=== PATIENT | female | born 1970 | race Caucasian/White ===

== ENCOUNTER 2020-02-12 12:26 | Emergency (ER) | payer OTHER ==
--- NOTE | 2020-02-12 12:35 | ERPHSYRPT ---
- History of Present Illness Time Seen by Provider: 02/12/20 12:30 Historian: patient Exam Limitations: no limitations Physician History: This is a 49-year-old female who takes diltiazem for history of congestive heart failure. She presents with left anterior chest pain that is sharp and nonradiating. Is localized. Patient states that she was seen at [facility] within the last week and was being worked up for myocardial infarction. However, she stated she did not feel comfortable without hospital so she left the hospital. She did not go to another hospital. She waited until the next day to go see her primary care physician. The primary care physician set the patient up for outpatient cardiology evaluation. Patient states that she has htn, dm and some COPD as well. Patient states her mild shortness of breath is no different than usual. Patient did not take any nitroglycerin or aspirin prior to arrival. Patient is in fact allergic to aspirin. Timing/Duration: yesterday Activities at Onset: none Quality: sharpness, stabbing Location: other (Left anterior chest wall) Chest Pain Radiation: no radiation Severity of Pain-Max: mild Severity of Pain-Current: mild Associated Symptoms: denies symptoms Prior Chest Pain/Cardiac Workup: recently seen/treated, recent hospitalization Nitro Today/Relief: no nitro taken today Aspirin Treatment Today: no aspirin today Allergies/Adverse Reactions: aspirin Allergy (Mild, Verified 05/21/16 20:45) Home Medications: Lisinopril 40 mg PO DAILY 01/04/13 [History] Atorvastatin Calcium [Lipitor] 0 05/21/16 [History] Diltiazem HCl [Cardizem] 0 mg 05/21/16 [History] Hydrochlorothiazide 25 mg PO DAILY 05/21/16 [History] Metformin HCl [Glucophage] 0 mg 05/21/16 [History] Hx Tetanus, Diphtheria Vaccination/Date Given: No Hx Influenza Vaccination/Date Given: No Hx Pneumococcal Vaccination/Date Given: No - Review of Systems Constitutional: No Symptoms Eyes: No Symptoms Ears, Nose, & Throat: No Symptoms Respiratory: No Symptoms Cardiac: Chest Pain (Left anterior chest wall) Abdominal/Gastrointestinal: No Symptoms Genitourinary Symptoms: No Symptoms Musculoskeletal: No Symptoms Skin: No Symptoms Neurological: No Symptoms Psychological: No Symptoms Endocrine: No Symptoms Hematologic/Lymphatic: No Symptoms Immunological/Allergic: No Symptoms All Other Systems: Reviewed and Negative - Past Medical History Pertinent Past Medical History: Yes Neurological History: No Pertinent History ENT History: No Pertinent History Cardiac History: High Cholesterol, Hypertension Respiratory History: COPD, Pneumonia Endocrine Medical History: Diabetes Type II Musculoskeletal History: No Pertinent History History: No Pertinent History Psycho-Social History: No Pertinent History Female Reproductive Disorders: No Pertinent History Other Medical History: CHRONIC BACK PAIN - Past Surgical History Past Surgical History: Yes Cardiac: No Pertinent History Respiratory: Tracheostomy Gastrointestinal: Cholecystectomy Musculoskeletal: Other (Back surgery) Female Surgical History: Section, Hysterectomy (partial hysterectomy), Tubal Ligation Other Surgical History: RT OVARY REMOVAL, BLOOD CLOT RT ARM REMOVED - Social History Smoking Status: Current every day smoker How long have you smoked: 32 YEARS Exposure to second hand smoke: No Drug Use: none Patient Lives Alone: No - Nursing Vital Signs Nursing Vital Signs: Initial Vital Signs Temperature 98.1 F 02/12/20 12:27 Pulse Rate 83 02/12/20 12:27 Respiratory Rate 18 02/12/20 12:27 Blood Pressure 149/90 02/12/20 12:27 O2 Sat by Pulse Oximetry 94 L 02/12/20 12:27 Pain Scale Pain Intensity 5 - Physical Exam General Appearance: no apparent distress, alert, anxiety Eye Exam: PERRL/EOMI, eyes nml inspection Ears, Nose, Throat Exam: normal ENT inspection, moist mucous membranes Neck Exam: normal inspection, non-tender, supple, full range of motion Respiratory Exam: normal breath sounds, chest tenderness (Left anterior chest wall), lungs clear, airway intact, No respiratory distress Cardiovascular Exam: regular rate/rhythm, normal heart sounds, normal peripheral pulses Gastrointestinal/Abdomen Exam: soft, normal bowel sounds, No tenderness Pelvic Exam: not done Rectal Exam: not done Back Exam: normal inspection, normal range of motion, No CVA tenderness, No vertebral tenderness Extremity Exam: normal inspection, normal range of motion, pelvis stable Neurologic Exam: alert, oriented x 3, cooperative, manager strategy & account II-XII nml as tested Skin Exam: normal color, warm, dry Lymphatic Exam: No adenopathy SpO2 Interpretation: normal O2 Delivery: Room Air - Course Nursing assessment & vital signs reviewed: Yes EKG Interpreted by Me: RATE (78), Sinus Rhythm, NORMAL AXIS, NORMAL INTERVALS, NORMAL QRS, Other (No comparison EKG available) Ordered Tests: Active Orders 24 hr Category Date Time Status Tie Mill Operator STAT Care 02/12/20 12:36 Active EKG-ER Only STAT Care 02/12/20 12:36 Active IV Insertion STAT Care 02/12/20 12:36 Active Pulse Oximetry (ED) STAT Care 02/12/20 12:36 Active CHEST 1 VIEW (PORTABLE) Stat Exams 02/12/20 12:36 Completed CHEST WITH CONTRAST [CT] Stat Exams 02/12/20 13:17 Completed CBC W DIFF Stat Lab 02/12/20 12:52 Completed CMP Stat Lab 02/12/20 12:52 Completed D-DIMER QUANTITATIVE Stat Lab 02/12/20 12:52 Completed NT PRO BNP Stat Lab 02/12/20 12:52 Completed PROTIME WITH INR Stat Lab 02/12/20 12:52 Completed TROPONIN Q3H Lab 02/12/20 12:52 Completed TROPONIN Q3H Lab 02/12/20 15:45 Ordered TROPONIN Q3H Lab 02/12/20 18:45 Ordered TROPONIN Q3H Lab 02/12/20 21:45 Ordered TROPONIN Q3H Lab 02/13/20 00:45 Ordered Medication Summary Discontinued Medications Generic Name Dose Route Start Last Admin Trade Name Freq PRN Reason Stop Dose Admin Sodium Chloride 500 mls @ 500 mls/hr 02/12/20 13:18 02/12/20 13:42 Sodium Chloride 0.9% 500 Ml IV 02/12/20 14:17 500 mls/hr .Q1H ONE Administration Sodium Chloride Confirm 02/12/20 13:17 Sodium Chloride 0.9% 1000 Ml Administered 02/12/20 13:18 Dose 1,000 mls @ ud .ROUTE .STK-MED ONE Sodium Chloride Confirm 02/12/20 13:41 Sodium Chloride 0.9% 500 Ml Administered 02/12/20 13:42 Dose 500 mls @ ud IV .STK-MED ONE Lab/Rad Data: Laboratory Result Diagrams 02/12/20 12:52 02/12/20 12:52 Laboratory Results 02/12/20 02/12/20 02/12/20 Range/Units 12:52 12:52 12:52 WBC (4.0-10.5) K/mm3 RBC (4.1-5.4) M/mm3 Hgb (12.0-16.0) gm/dl Hct (35-47) % MCV (78-100) fl MCH (26-32) pg MCHC (32-36) g/dl RDW (11.5-14.0) % Plt Count (150-450) K/mm3 MPV (7.5-11.0) fl Gran % (36.0-66.0) % Eos # (Auto) (0-0.5) Absolute Lymphs (auto) (1.0-4.6) Absolute Monos (auto) (0.0-1.3) Lymphocytes % (24.0-44.0) % Monocytes % (0.0-12.0) % Eosinophils % (0.00-5.0) % Basophils % (0.0-0.4) % Absolute Granulocytes (1.4-6.9) Basophils # (0-0.4) PT 10.9 (9.95-12.35) SECONDS INR 0.97 (0.8-3.0) D-Dimer 994 H* (215-500) ng/mL Sodium 137 (137-145) mmol/L Potassium 3.6 (3.5-5.1) mmol/L Chloride 98 (98-107) mmol/L Carbon Dioxide 29 (22-30) mmol/L Anion Gap 13.6 (5-15) MEQ/L BUN 24 H (7-17) mg/dL Creatinine 0.83 (0.52-1.04) mg/dL Estimated GFR > 60.0 ML/MIN Glucose 190 H (74-106) mg/dL Calcium 9.7 (8.4-10.2) mg/dL Total Bilirubin 0.50 (0.2-1.3) mg/dL AST 19 (14-36) U/L ALT 17 (0-35) U/L Alkaline Phosphatase 96 (38-126) U/L Troponin I < 0.012 (0.000-0.034) ng/mL NT-Pro-B Natriuret Pep 26.2 (0-450) pg/mL Serum Total Protein 7.4 (6.3-8.2) g/dL Albumin 4.1 (3.5-5.0) g/dL 02/12/20 Range/Units 12:52 WBC 12.4 H (4.0-10.5) K/mm3 RBC 5.43 H (4.1-5.4) M/mm3 Hgb 15.6 (12.0-16.0) gm/dl Hct 46.1 (35-47) % MCV 84.9 (78-100) fl MCH 28.7 (26-32) pg MCHC 33.8 (32-36) g/dl RDW 13.9 (11.5-14.0) % Plt Count 275 (150-450) K/mm3 MPV 11.8 H (7.5-11.0) fl Gran % 79.2 H (36.0-66.0) % Eos # (Auto) 0.18 (0-0.5) Absolute Lymphs (auto) 1.70 (1.0-4.6) Absolute Monos (auto) 0.66 (0.0-1.3) Lymphocytes % 13.7 L (24.0-44.0) % Monocytes % 5.3 (0.0-12.0) % Eosinophils % 1.5 (0.00-5.0) % Basophils % 0.3 (0.0-0.4) % Absolute Granulocytes 9.81 H (1.4-6.9) Basophils # 0.04 (0-0.4) PT (9.95-12.35) SECONDS INR (0.8-3.0) D-Dimer (215-500) ng/mL Sodium (137-145) mmol/L Potassium (3.5-5.1) mmol/L Chloride (98-107) mmol/L Carbon Dioxide (22-30) mmol/L Anion Gap (5-15) MEQ/L BUN (7-17) mg/dL Creatinine (0.52-1.04) mg/dL Estimated GFR ML/MIN Glucose (74-106) mg/dL Calcium (8.4-10.2) mg/dL Total Bilirubin (0.2-1.3) mg/dL AST (14-36) U/L ALT (0-35) U/L Alkaline Phosphatase (38-126) U/L Troponin I (0.000-0.034) ng/mL NT-Pro-B Natriuret Pep (0-450) pg/mL Serum Total Protein (6.3-8.2) g/dL Albumin (3.5-5.0) g/dL - Progress Progress: improved, re-examined Air Movement: good Progress Note: 02/12/20 13:10 Chest x-ray reveals no acute process 02/12/20 14:24 CAT scan of the chest with intravenous contrast reveals no acute process. There is no evidence of any pulmonary emboli. 02/12/20 14:25 Patient was told to follow-up with her primary care doctor regarding mild pulmonary adenopathy. Blood Culture(s) Obtained: No Antibiotics given: No Counseled pt/family regarding: lab results, diagnosis, need for follow-up, rad results - Departure Departure Disposition: Home Clinical Impression: Chest pain, non-cardiac Condition: Stable Critical Care Time: No Referrals: TONI RENE [Primary Care Provider] - Additional Instructions: Follow-up with your primary care physician regarding some mild pulmonary adenopathy it is present. Continue your medication as prescribed. Keep your cardiology appointment that is scheduled for you. Return to the emergency department if your symptoms worsen or recur.
[2020-02-12 12:54] LABS: Absolute Neutrophil Ct (ANC) 9.81 (1.4-6.9); BASOPHIL % 0.3 % (0.0-0.4); Basophil (Absolute #) 0.04 (0-0.4); Eosinophil % 1.5 % (0.00-5.0); Eosinophil (Absolute #) 0.18 (0-0.5); Hematocrit 46.1 % (35-47); Hemoglobin 15.6 gm/dl (12.0-16.0); Lymphocytes % 13.7 % (24.0-44.0); Mean Cell Volume 84.9 fl (78-100); Mean Corpuscular Hemoglobin 28.7 pg (26-32); Mean Corpuscular Hgb Concent. 33.8 g/dl (32-36); Mean Platelet Volume 11.8 fl (7.5-11.0); Monocyte (Absolute #) 0.66 (0.0-1.3); Monocytes % 5.3 % (0.0-12.0); Neutrophil % 79.2 % (36.0-66.0); Platelet Count 275 K/mm3 (150-450); Red Blood Count 5.43 M/mm3 (4.1-5.4); Red Cell Distribution Width 13.9 % (11.5-14.0); White Blood Count 12.4 K/mm3 (4.0-10.5)
--- NOTE | 2020-02-12 13:01 | XRAY ---
Indication: Left-sided chest pain. Comparison: November 15, 2017. Portable chest unchanged again demonstrating left midlung fibrosis/scarring. Remaining heart and lungs unremarkable. Bony thorax intact. No new/acute findings.
[2020-02-12 13:08] LABS: INR 0.97 (0.8-3.0); PROTIME 10.9 SECONDS (9.95-12.35)
[2020-02-12 13:14] LABS: ALBUMIN 4.1 g/dL (3.5-5.0); ALKALINE PHOSPHATASE 96 U/L (38-126); ANION GAP 13.6 MEQ/L (5-15); BLOOD UREA NITROGEN 24 mg/dL (7-17); CHLORIDE 98 mmol/L (98-107); Calcium 9.7 mg/dL (8.4-10.2); Carbon Dioxide 29 mmol/L (22-30); Creatinine 1 0.83 mg/dL (0.52-1.04); Glucose 190 mg/dL (74-106); NT PRO BNP 26.2 pg/mL (0-450); Potassium 3.6 mmol/L (3.5-5.1); SGOT/AST 19 U/L (14-36); SGPT/ALT 17 U/L (0-35); SODIUM 137 mmol/L (137-145); Total Protein 7.4 g/dL (6.3-8.2)
[2020-02-12] MEDS ORDERED: Sodium Chloride 0.9% 1000 ML 1,000 ML ONE (13:17)
[2020-02-12] MEDS ORDERED: Sodium Chloride 0.9% 500 ML 500 ML IV ONE ×2 (13:18→13:41)
[2020-02-12 13:57] VITALS: BP 119/55; PULSE 70; O2SAT 94
--- NOTE | 2020-02-12 14:17 | XRAY ---
Indication: Chest pain. Elevated d-dimer. Multiple contiguous axial images obtained through the chest using 100 cc Isovue-370 contrast and PE protocol. Comparison: None There is good opacification of the pulmonary arteries to include the lobar and segmental branches. No filling defect/pulmonary embolus. Heart is not enlarged. Aorta is normal in course and caliber. Tiny subcarinal and right hilar calcified nodes. No pathologic mediastinal/hilar lymphadenopathy. Lungs demonstrates mild pulmonary emphysema and scattered fibrosis/scarring bilaterally. Indeterminant 9 mm noncalcified nodule in the superior segment of the right lower lobe (image [id number]) with irregular margins. No infiltrate or effusion. Bony thorax intact. Limited upper abdomen demonstrates calcified splenic granuloma and mild fatty liver. Also 2.8 x 4.0 cm right adrenal gland and 1.0 x 2.4 cm left adrenal gland adenomas. Impression: 1. Negative pulmonary embolus. 2. Mild pulmonary emphysema and scattered fibrosis/scarring. 3. Indeterminant subcentimeter right lower lobe irregular noncalcified pulmonary nodule. Too small for PET/CT. Comparison studies would be of benefit if performed elsewhere. If not, consider follow-up per Fleischner guidelines. 4. Bilateral adrenal gland adenomas. 5. Incidental fatty liver and evidence for old granulomatous disease.
== END 2020-02-12 14:42 | disposition home or self-care (01) ==
LOC: ED 12:26
DX: R07.89 Other chest pain (principal); R59.9 Enlarged lymph nodes, unspecified; I50.9 Heart failure, unspecified; I10 Essential (primary) hypertension; E11.9 Type 2 diabetes mellitus without complications; Z79.4 Long term (current) use of insulin; E78.00 Pure hypercholesterolemia, unspecified; Z72.0 Tobacco use
CPT/HCPCS: 36000; 36415; 71045; 71260; 80053; 83880; 84484; 85025; 85379; 85610; 93005; 93041; 94760; 96360; 99284

== ENCOUNTER 2024-07-21 18:32 | Emergency (ER) | payer OTHER ==
[2024-07-21 19:00] VITALS: TEMP 97.8; O2SAT 95
[2024-07-21] MEDS ORDERED: BACTRIM DS TABLET PO ONE (19:25)
[2024-07-21] MEDS ORDERED: solu-MEDROL ONE (19:25)
[2024-07-21] MEDS ORDERED: Sterile H2O 10 ml IJ ONE (19:25)
[2024-07-21] MEDS ORDERED: ATARAX 25 MG ONE (19:25)
[2024-07-21] MEDS: ATARAX 25 MG PO ONE (19:28)
[2024-07-21] MEDS: BACTRIM DS TABLET PO ONE (19:29)
[2024-07-21] MEDS: solu-MEDROL 125 MG, Sterile H2O 10 ml 2 ML IM ONE (19:29)
--- NOTE | 2024-07-21 19:30 | ERPHSYRPT ---
- History of Present Illness Time Seen by Provider: 07/21/24 19:00 Source: patient Exam Limitations: no limitations Patient Subjective Stated Complaint: itchy rash on the back of her head Triage Nursing Assessment: Pt brought self to the ER, hypertensive, rates pain as 5/10, back of head red and draining, pulses normal, on 5L NC, doesn't appear to be in any distress Physician History: This is a 53-year-old white female patient who in the last few weeks has been treated with antibiotics and steroids for a pneumonia. She has had 2 rounds of antibiotics. She has completed them. However, approximately 1 week ago, the patient noticed some rash on the back of her neck and occipital region of her scalp. It has been very itchy. She is having trouble not scratching the site. She has never had anything like this before. She is currently not on any antibiotics. She is just on her usual medications. Other than the antibiotics 2 to 3 weeks ago she has not been on any new medications. Timing/Duration: week(s) (1) Quality: burning, itchy Severity: mild (To moderate) Location: scalp (Occipital region) Possible Causes: no cause identified Associated Symptoms: change in skin texture, rash Allergies/Adverse Reactions: aspirin Adverse Reaction (Mild, Verified 07/21/24 18:45) Vomiting Home Medications: Lisinopril 40 mg PO DAILY 01/04/13 [History] Atorvastatin Calcium [Lipitor] 80 mg PO DAILY 05/21/16 [History] Metformin HCl [Glucophage] 1,000 mg PO BID 05/21/16 [History] hydroCHLOROthiazide [Hydrochlorothiazide] 25 mg PO DAILY 05/21/16 [History] Albuterol Sulfate 1 inh PO DAILY 07/21/24 [History] Budesonide/Formoterol Fumarate [Symbicort 160-4.5 Mcg Inhaler] 2 puffs IH BID 07/21/24 [History] Bupropion HCl 150 mg Sr [Wellbutrin SR 150 MG] 150 mg PO BID 07/21/24 [History] Escitalopram Oxalate [Lexapro] 10 mg PO DAILY 07/21/24 [History] Gabapentin [Neurontin ] 300 mg PO TID 07/21/24 [History] Isosorbide Mononitrate 60 mg [Imdur 60MG] 60 mg PO DAILY 07/21/24 [History] Loratadine 10 mg [Claritin 10 mg] 10 mg PO DAILY 07/21/24 [History] Magnesium Oxide 400 mg PO DAILY 07/21/24 [History] Pantoprazole 20 mg [Protonix 20MG Tablet] 20 mg PO DAILY 07/21/24 [History ] Potassium Chloride 10 meq PO DAILY 07/21/24 [History] Tiotropium [place] [Spiriva Handihaler] 1 cap PO DAILY 07/21/24 [History] Trazodone HCl 50 mg [Desyrel 50 mg] 100 mg PO HS 07/21/24 [History] dilTIAZem HCL [Diltiazem 24Hr ER (Cd)] 360 mg PO DAILY 07/21/24 [History] Hx Tetanus, Diphtheria Vaccination/Date Given: No Hx Influenza Vaccination/Date Given: No Hx Pneumococcal Vaccination/Date Given: No Travel Risk - International Travel Have you traveled outside of the country in past 3 weeks: No - Emerging Infectious Disease Are you exhibiting symptoms associated with any current EIDs: No - Review of Systems Constitutional: No Symptoms Eyes: No Symptoms Ears, Nose, & Throat: No Symptoms Respiratory: No Symptoms Cardiac: No Symptoms Abdominal/Gastrointestinal: No Symptoms Genitourinary Symptoms: No Symptoms Musculoskeletal: No Symptoms Skin: Cellulitis, Rash Neurological: No Symptoms Psychological: No Symptoms Endocrine: No Symptoms Hematologic/Lymphatic: No Symptoms Immunological/Allergic: No Symptoms All Other Systems: Reviewed and Negative - Past Medical History Pertinent Past Medical History: Yes Neurological History: No Pertinent History ENT History: No Pertinent History Cardiac History: High Cholesterol, Hypertension Respiratory History: COPD, Pneumonia Endocrine Medical History: Diabetes Type II Musculoskeletal History: No Pertinent History History: No Pertinent History Psycho-Social History: No Pertinent History Female Reproductive Disorders: No Pertinent History Other Medical History: CHRONIC BACK PAIN - Past Surgical History Past Surgical History: Yes Cardiac: No Pertinent History Respiratory: Tracheostomy Gastrointestinal: Cholecystectomy Musculoskeletal: Other Female Surgical History: Section, Hysterectomy, Tubal Ligation Other Surgical History: RT OVARY REMOVAL, BLOOD CLOT RT ARM REMOVED - Female History Hx Now: No - Social History Smoking Status: Current every day smoker How long have you smoked: 32 YEARS Exposure to second hand smoke: Yes Drug Use: none Patient Lives Alone: No - Social Determinants of Health Will the patient participate in the screening: Yes Do you worry about a steady place to live?: No Do you have any problems with any of the following?: No known problems In the past 12 months,have you had to go without utilities?: No Transportation Issues: No Has anyone in your support network made you feel unsafe?: No Have you or anyone in your house had to go without enough: No - Nursing Vital Signs Nursing Vital Signs: Initial Vital Signs Temperature 97.8 F 07/21/24 18:37 Pulse Rate 79 07/21/24 18:37 Blood Pressure 162/79 07/21/24 18:37 O2 Sat by Pulse Oximetry 95 07/21/24 18:37 Pain Scale Pain Intensity 5 - Physical Exam General Appearance: no apparent distress, alert, anxiety Eye Exam: PERRL/EOMI, eyes nml inspection Ears, Nose, Throat Exam: normal ENT inspection, moist mucous membranes Neck Exam: other (Skin with mildew odor cellulitis and damp with crust formation onto the occipital region of the scalp) Respiratory Exam: airway intact, No chest tenderness, No respiratory distress Gastrointestinal/Abdomen Exam: No tenderness Pelvic Exam: not done Rectal Exam: not done Extremity Exam: normal inspection, normal range of motion, pelvis stable Neurologic Exam: alert, oriented x 3, cooperative, data modeling specialist II-XII nml as tested, nml cerebellar function, nml station & gait, sensation nml Skin Exam: normal color, warm, dry Lymphatic Exam: No adenopathy SpO2 Interpretation: normal SpO2: 95 O2 Delivery: Room Air Ordered Tests: Active Orders 24 hr Category Date Time Status CULTURE,WOUND Stat Lab 07/21/24 18:59 Ordered Medication Summary Discontinued Medications Generic Name Dose Route Start Last Admin Trade Name Glendy PRN Reason Stop Dose Admin Methylprednisolone Sodium 0 mg 07/21/24 19:21 Succinate 125 mg/ Sterile IM 07/21/24 19:22 Water 2 ml STAT ONE Hydroxyzine HCl 50 mg 07/21/24 19:22 Hydroxyzine Hcl 25 Mg Tablet PO 07/21/24 19:23 STAT ONE Trimethoprim/Sulfamethoxazole 1 tab 07/21/24 19:21 Smz/Tmp Ds Tablet 1 Tablet PO 07/21/24 19:22 STAT ONE - Progress Progress: unchanged Progress Note: 07/21/24 19:36 My medical decision making of the assignment of low complexity to this patient's medical issue today is based on review of the patient's past medical history, review of the patient's medication list, review of patient drug allergy list, history present illness and physical findings on examination. The workup in this patient does not require any radiographic studies but we did obtain a culture of the fluid from the rash/skin site. Differential diagnosis includes but is not limited to cellulitis, atopic dermatitis, bacterial infection, viral infection, fungal infection Counseled pt/family regarding: diagnosis, need for follow-up Medical Desision Making - Diagnostic Testing Diagnostic test were ordered, analyzed, and reviewed by me: Yes - Risk of complications The pt has a mod risk of morbidity or mortality based on: Need for prescription drug management - Departure Departure Disposition: Home Clinical Impression: Cellulitis of neck, Cellulitis of scalp Condition: Stable Critical Care Time: No Referrals: ABRAHAN STEELE DO [Primary Care Provider] - Follow up/PCP as directed Additional Instructions: Cut and shave the hair that is covering the rash/infectious site. Wash this area 3 times a day with antibacterial soap. Blot dry use a inspector hairspring. May cover the site after washing and drying twice a day with either zinc oxide ointment or [employer] Butt paste. You can purchase this [id number]. Take your medications as prescribed. Return to the emergency department tomorrow, 07/21/2024 at noon for reassessment. Also make sure you call your primary care provider on 07/24/2024 to be seen in the next 1 to 2 days. Prescriptions: Hydroxyzine HCl 25 mg [Atarax 25 mg] 25 mg PO Q6H PRN #12 tablet PRN Reason: Itching Prednisone 10 mg [Deltasone 10 mg] 10 mg PO TID #12 tablet Fluconazole 100 mg [Diflucan 100 MG] 100 mg PO DAILY #2 tablet
[2024-07-21] MEDS: Diflucan 100 MG PO ONE (19:45)
[2024-07-21 20:07] VITALS: BP 163/80; PULSE 78; RESP 18
== END 2024-07-21 20:02 | disposition home or self-care (01) ==
LOC: ED 18:32
DX: L03.811 Cellulitis of head [any part, except face] (principal); L03.221 Cellulitis of neck; E78.5 Hyperlipidemia, unspecified; I10 Essential (primary) hypertension; E11.9 Type 2 diabetes mellitus without complications; Z79.52 Long term (current) use of systemic steroids; Z79.84 Long term (current) use of oral hypoglycemic drugs; Z79.899 Other long term (current) drug therapy; Z72.0 Tobacco use
CPT/HCPCS: 87070; 87077; 87186; 96372; 99283; J2919; A9270-GY

== ENCOUNTER 2024-09-11 07:24 | Emergency (ER) | payer MEDICAID, OTHER ==
[2024-09-11] MEDS ORDERED: DUONEB 0.5-3 MG/3 ml Neb IH ONE ×2 (07:31→07:35)
[2024-09-11] MEDS: DUONEB 0.5-3 MG/3 ml Neb IH ONE (07:33)
[2024-09-11 07:36] LABS: Hematocrit 36.5 % (34.1-44.9); Hemoglobin 12.2 g/dL (11.2-15.7); Mean Cell Volume 83.3 fL (79.4-94.8); Mean Corpuscular Hemoglobin 27.9 pg (25.6-32.2); Mean Corpuscular Hgb Concent. 33.4 g/dL (32.2-35.5); Mean Platelet Volume 10.4 fL (9.4-12.3); Platelet Count 498 x10^3/uL (182-369); Red Blood Count 4.38 x10^6/uL (3.93-5.22); Red Cell Distribution Width 15.1 % (11.7-14.4)
[2024-09-11] MEDS: Lasix 40 MG/4 ML IV ONE (07:36)
[2024-09-11] MEDS ORDERED: Lasix 40 MG/4 ML ONE (07:36)
[2024-09-11] MEDS: Versed 2 MG/2 ML Injection IV PRN (07:41)
[2024-09-11] MEDS ORDERED: NOREPINEPHRINE 8 MG/250 ML-D5W 8 MG/250 ML PLAST..BAG IV ONE (07:42)
[2024-09-11] MEDS: Quelicin Fliptop 200 MG/10 ML IV ONE (07:42)
[2024-09-11] MEDS ORDERED: VERSED 5 MG/5 ML ONE (07:45)
[2024-09-11] MEDS ORDERED: Quelicin Fliptop 200 MG/10 ML ONE (07:45)
[2024-09-11 07:49] LABS: ALBUMIN 3.4 g/dL (3.5-5.0); ANION GAP 24.2 MEQ/L (5-15); BILIRUBIN,TOTAL 1.1 mg/dL (0.2-1.3); Calcium 8.3 mg/dL (8.4-10.2); MAGNESIUM 1.4 mg/dL (1.6-2.3); Potassium 4.4 mmol/L (3.5-5.1); Total Protein 6.5 g/dL (6.3-8.2)
[2024-09-11 07:54] LABS: ANISOCYTOSIS 1+; BAND 13 % (0.0-2.0); Lymphocytes 2 % (19.3-51.7); Monocyte 4 % (4.7-12.5); Neutrophils 81 % (34.0-71.1); Platelet Estimate INCREASED (NORMAL); Total Cells Counted 100
[2024-09-11 07:55] LABS: Toxic Granulation 1+
[2024-09-11] MEDS: Versed 50 MG/ 10 Ml MDV*** 50 MG in Sodium Chloride 0.9% 250 ML 240 ML IV PRN (08:00)
[2024-09-11] MEDS: PIPERACILLIN/TAZOBACTAM 3.375 GM in Sodium Chloride 100ML MINI-BAG PLUS 100 ML IV ONE (08:04)
[2024-09-11] MEDS ORDERED: VANCOMYCIN 1 GRAM/200 ML BAG 1 GM/200 ML PIGGYBACK IV ONE (08:05)
[2024-09-11] MEDS: NOREPINEPHRINE 8 MG/250 ML-D5W 8 MG/250 ML PLAST..BAG IV PRN (08:12)
[2024-09-11] MEDS: Sodium Chloride 0.9% 1000 ML 1,000 ML IV SCH (08:15)
[2024-09-11] MEDS ORDERED: SODIUM BICARBONATE 50 MEQ/50 ML ABBOJECT IV ONE (08:26)
[2024-09-11 08:32] LABS: A-aADO2 554; ABG HEMOGLOBIN 12.7; ABG POTASSIUM 4.8 (3.5-5.1); ARTERIAL BLD GAS O2 SATURATION 88.6 % (95-100); ARTERIAL BLOOD GAS BASE EXCESS -8.2 (-2.0-2.0); ARTERIAL BLOOD GAS FIO2 100 %; ARTERIAL BLOOD GAS PO2 65 mmHg (75-100); ARTERIAL BLOOD GAS pH 7.09 (7.35-7.45); CARBOXYHEMOGLOBIN 2.7 % THgb (0.0-6.9); HCO3- 22.8 (22-28); HGB O2 SAT 85.6 g/dF (94-100); Methhemoglobin 0.8 % (1.4-1.5); paO2 pAO1 0.11
[2024-09-11 08:33] LABS: ABG SITE LEFT RADIAL; ARTERIAL BLOOD GAS PCO2 75 mmHg (35-45)
--- NOTE | 2024-09-11 08:35 | XRAY ---
Indication: Endotracheal tube and OG tube placement. Respiratory distress. Comparison: January 11, 2024 Portable chest demonstrates new endotracheal tube tip 4 cm above flower and new NG tube traversing chest with tip not included but presumed in stomach. Lungs demonstrates large right mid to lower lung infiltrate/atelectasis/effusion. Remaining heart and left lung unremarkable. Bony thorax intact.
[2024-09-11] MEDS: SODIUM BICARBONATE 50 MEQ/50 ML ABBOJECT IV ONE (08:38)
[2024-09-11] MEDS: VANCOMYCIN 1 GRAM/200 ML BAG 1 GM/200 ML PIGGYBACK IV SCH (08:41)
[2024-09-11 08:53] VITALS: TEMP 97.5
[2024-09-11 09:03] LABS: Appearance Cloudy (Clear); Bacteria Rare /HPF (None Seen); Bilirubin Moderate (Negative); Blood Negative (Negative); Epithelial Cells Many /HPF (None Seen); Glucose, Urine Negative (Negative); Ketones Negative (Negative); Leukocyte Esterase Small (Negative); Nitrite Positive (Negative); Protein,Urine Dip 30 (Negative); WBC 0-2 /HPF (0-5)
[2024-09-11 09:12] LABS: Granular Casts 0-2 /LPF (None Seen)
--- NOTE | 2024-09-11 09:16 | ERPHSYRPT ---
- History of Present Illness Time Seen by Provider: 09/11/24 07:34 Source: EMS Exam Limitations: clinical condition Patient Subjective Stated Complaint: patient complaining of sob , paramedics were called to the scene and then she was placedon cpap and given one dose of so lumedrol and brought to the ED Timing/Duration: today Severity: severe Associated Symptoms: shortness of breath, cough Allergies/Adverse Reactions: aspirin Adverse Reaction (Mild, Verified 09/11/24 09:44) Vomiting Can't take too much of Aspirin, but family states she does take ASA 81mg daily Home Medications: Atorvastatin Calcium [Lipitor] 80 mg PO DAILY 05/21/16 [History] Metformin HCl [Glucophage] 1,000 mg PO BID 05/21/16 [History] hydroCHLOROthiazide [Hydrochlorothiazide] 25 mg PO DAILY 05/21/16 [History] Albuterol Sulfate 1 inh PO DAILY 07/21/24 [History] Budesonide/Formoterol Fumarate [Symbicort 160-4.5 Mcg Inhaler] 2 puffs IH BID 07/21/24 [History] Bupropion HCl 150 mg Sr [Wellbutrin SR 150 MG] 150 mg PO BID 07/21/24 [History] Gabapentin [Neurontin ] 300 mg PO TID 07/21/24 [History] Isosorbide Mononitrate 60 mg [Imdur 60MG] 60 mg PO DAILY 07/21/24 [History] Loratadine 10 mg [Claritin 10 mg] 10 mg PO DAILY 07/21/24 [History] Magnesium Oxide 400 mg PO DAILY 07/21/24 [History] Potassium Chloride 10 meq PO DAILY 07/21/24 [History] Tiotropium [place] [Spiriva Handihaler] 1 cap PO DAILY 07/21/24 [History] Trazodone HCl 50 mg [Desyrel 50 mg] 100 mg PO HS 07/21/24 [History] dilTIAZem HCL [Diltiazem 24Hr ER (Cd)] 360 mg PO DAILY 07/21/24 [History] Aspirin [Aspirin EC] 1 tab PO DAILY 09/11/24 [History] Buspirone HCl 5 mg [Buspar 5 mg] 1 tab PO TID 09/11/24 [History] Hx Tetanus, Diphtheria Vaccination/Date Given: No Hx Influenza Vaccination/Date Given: No Hx Pneumococcal Vaccination/Date Given: No Travel Risk - Emerging Infectious Disease Are you exhibiting symptoms associated with any current EIDs: No - Review of Systems Constitutional: No Symptoms Eyes: No Symptoms Ears, Nose, & Throat: No Symptoms Respiratory: Dyspnea, Dyspnea on Exertion (JEFFREY), Wheezing Cardiac: No Symptoms Abdominal/Gastrointestinal: No Symptoms Genitourinary Symptoms: No Symptoms Musculoskeletal: No Symptoms Skin: No Symptoms Neurological: No Symptoms Psychological: No Symptoms Endocrine: No Symptoms Hematologic/Lymphatic: No Symptoms Immunological/Allergic: No Symptoms All Other Systems: Reviewed and Negative - Past Medical History Pertinent Past Medical History: Yes Neurological History: No Pertinent History ENT History: No Pertinent History Cardiac History: High Cholesterol, Hypertension Respiratory History: COPD, Pneumonia Endocrine Medical History: Diabetes Type II Musculoskeletal History: No Pertinent History History: No Pertinent History Psycho-Social History: No Pertinent History Female Reproductive Disorders: No Pertinent History Other Medical History: CHRONIC BACK PAIN - Past Surgical History Past Surgical History: Yes Cardiac: No Pertinent History Respiratory: Tracheostomy Gastrointestinal: Cholecystectomy Musculoskeletal: Other Female Surgical History: Section, Hysterectomy, Tubal Ligation Other Surgical History: RT OVARY REMOVAL, BLOOD CLOT RT ARM REMOVED - Social History Smoking Status: Current every day smoker How long have you smoked: 32 YEARS Exposure to second hand smoke: Yes Drug Use: none Patient Lives Alone: No - Social Determinants of Health Will the patient participate in the screening: Yes Do you worry about a steady place to live?: No In the past 12 months,have you had to go without utilities?: No Transportation Issues: No Has anyone in your support network made you feel unsafe?: No Have you or anyone in your house had to go without enough: No - Nursing Vital Signs Nursing Vital Signs: Initial Vital Signs Pulse Rate 77 09/11/24 07:32 Respiratory Rate 29 H 09/11/24 07:32 Pain Scale Pain Intensity 0 - Physical Exam General Appearance: severe distress Eye Exam: PERRL/EOMI Ears, Nose, Throat Exam: normal ENT inspection, other (bruising noted to the right lateral cheek and orbit ) Respiratory Exam: prolonged expirations, crackles/rales, rhonchi, wheezing, other (bruising noted to the right shoulder and chest wall ) Cardiovascular Exam: regular rate/rhythm Gastrointestinal/Abdomen Exam: soft Extremity Exam: normal inspection Neurologic Exam: other (not cooperative ) SpO2: 98 O2 Delivery: CPAP Procedures - Intubation Time of Intubation: 07:45 Intubation Indications: respiratory arrest, airway protection, respiratory distress Intubation Method: glidescope Tube Size (cm): 7.5 Medications: Midazolam (Versed), Succinylcholine Endotracheal Tube Confirmation: bilateral breath sounds Intubation Complications: no complications Performed By: Respiratory Therapy Ordered Tests: Active Orders 24 hr Category Date Time Status CO2 Monitoring STAT Care 09/11/24 08:25 Active EKG-ER Only STAT Care 09/11/24 07:40 Active Cobian [Catheter-[place] Cobian] STAT Care 09/11/24 07:49 Active IV Insertion STAT Care 09/11/24 07:40 Completed IV Insertion-2nd Peripheral STAT Care 09/11/24 07:40 Active ABDOMEN AND PELVIS W/0 CONTRAS [CT] Stat Exams 09/11/24 08:19 Completed CERVICAL SPINE WO CONTRAST [CT] Stat Exams 09/11/24 08:19 Completed CHEST 1 VIEW (PORTABLE) Stat Exams 09/11/24 07:26 Completed CHEST WITHOUT CONTRAST [CT] Stat Exams 09/11/24 08:19 Completed FACIAL BONES WO CONTRAST [CT] Stat Exams 09/11/24 08:24 Completed HEAD WITHOUT CONTRAST [CT] Stat Exams 09/11/24 08:19 Completed ABG [ARTERIAL BLOOD GASES] Routine Lab 09/11/24 09:25 Completed ABG [ARTERIAL BLOOD GASES] Routine Lab 09/11/24 13:45 Completed ABG [ARTERIAL BLOOD GASES] Stat Lab 09/11/24 07:35 Completed BLOOD CULTURE Stat Lab 09/11/24 08:00 Received CBC W DIFF Stat Lab 09/11/24 07:30 Results CMP Stat Lab 09/11/24 07:30 Completed CULTURE,URINE Stat Lab 09/11/24 08:15 Received Lactic Acid Routine Lab 09/11/24 13:45 Completed Lactic Acid Stat Lab 09/11/24 07:35 Completed MAGNESIUM Stat Lab 09/11/24 07:30 Completed Manual Differential NC Stat Lab 09/11/24 07:30 Results PROCALCITONIN Stat Lab 09/11/24 07:30 Completed Pathologist Review Stat Lab 09/11/24 07:30 Results TROPONIN Q4H Lab 09/11/24 07:30 Completed TROPONIN Q4H Lab 09/11/24 11:40 Completed TROPONIN Q4H Lab 09/11/24 15:45 Ordered TROPONIN Q4H Lab 09/11/24 19:45 Ordered TROPONIN Q4H Lab 09/11/24 23:45 Ordered UA W/RFX UR CULTURE Stat Lab 09/11/24 08:47 Completed BiPap/CPAP STAT RT 09/11/24 08:04 Active Respiratory Therapy Assessment DAILY RT 09/11/24 08:03 Active Respiratory Therapy Assessment DAILY RT 09/11/24 09:53 Active Ventilator Management STAT RT 09/11/24 08:04 Active Medication Summary Generic Name Dose Route Start Last Admin Trade Name Freq PRN Reason Stop Dose Admin Vancomycin HCl 1 gm in 200 mls @ 125 mls/hr 09/11/24 07:45 09/11/24 13:22 Vancomycin 1 Gram/200 Ml Bag IV 10/11/24 07:44 Infused Q12H ELENITA Infusion Midazolam HCl 50 mg/ Sodium 250 mls @ 11.6 mls/hr 09/11/24 07:48 09/11/24 09:29 Chloride IV 10/11/24 07:47 0.03 mg/kg/hr .[id number] PRN 13.92 mls/hr SEDATION Titration Protocol 0.025 MG/KG/HR Norepinephrine/Dextrose 8 mg in 250 mls @ 15 mls/hr 09/11/24 08:09 09/11/24 09:47 Norepinephrine 8 Mg/250 Ml-D5w IV 10/11/24 08:08 12 mcg/min .[id number] PRN 22.5 mls/hr HYPOTENSION Titration Protocol 8 MCG/MIN Sodium Chloride 1,000 mls @ 50 mls/hr 09/11/24 08:15 09/11/24 08:15 Sodium Chloride 0.9% 1000 Ml IV 10/11/24 08:14 50 mls/hr .Q20H ELENITA Administration Midazolam HCl 2 mg 09/11/24 07:50 09/11/24 07:41 Midazolam Hcl 2 Mg/2 Ml Vial IV 10/11/24 07:49 2 mg 1HRPRIOR PRN Administration RESPIRATORY DEPRESSION Discontinued Medications Generic Name Dose Route Start Last Admin Trade Name Freq PRN Reason Stop Dose Admin Albuterol Sulfate Confirm 09/11/24 09:49 Albuterol Sulfate 2.5 Mg/3 Ml Neb Administered 09/11/24 09:50 Dose 2.5 mg IH .STK-MED ONE Albuterol Sulfate 2.5 mg 09/11/24 09:52 09/11/24 09:53 Albuterol Sulfate 2.5 Mg/3 Ml Neb IH 09/11/24 09:53 2.5 mg STAT ONE Administration Albuterol/Ipratropium Confirm 09/11/24 07:31 Ipratropium/Albuterol Sulfate 3 Ml Ampul.Neb Administered 09/11/24 07:32 Dose 3 ml IH .STK-MED ONE Albuterol/Ipratropium 3 ml 09/11/24 07:31 09/11/24 07:33 Ipratropium/Albuterol Sulfate 3 Ml Ampul.Neb IH 09/11/24 07:32 3 ml STAT ONE Administration Albuterol/Ipratropium Confirm 09/11/24 07:35 Ipratropium/Albuterol Sulfate 3 Ml Ampul.Neb Administered 09/11/24 07:36 Dose 3 ml IH .STK-MED ONE Furosemide 40 mg 09/11/24 07:36 09/11/24 07:36 Furosemide 40 Mg/4 Ml Vial IV 09/11/24 07:37 40 mg STAT ONE Administration Furosemide Confirm 09/11/24 07:36 Furosemide 40 Mg/4 Ml Vial Administered 09/11/24 07:37 Dose 40 mg .ROUTE .STK-MED ONE Norepinephrine/Dextrose Confirm 09/11/24 07:42 Norepinephrine 8 Mg/250 Ml-D5w Administered 09/11/24 07:43 Dose 8 mg in 250 mls @ ud IV .STK-MED ONE Piperacillin Sod/Tazobactam 100 mls @ 200 mls/hr 09/11/24 07:45 09/11/24 08:04 Sod 3.375 gm/ Sodium Chloride IV 09/11/24 08:14 200 mls/hr STAT ONE Administration Vancomycin HCl Confirm 09/11/24 08:05 Vancomycin 1 Gram/200 Ml Bag Administered 09/11/24 08:06 Dose 1 gm in 200 mls @ ud IV .STK-MED ONE Midazolam HCl 5 mg 09/11/24 07:45 Midazolam Hcl 5 Mg/5 Ml Vial .ROUTE 09/11/24 07:46 .STK-MED ONE Rocuronium [place] 50 mg 09/11/24 09:29 09/11/24 09:37 Rocuronium [place] 100 Mg/10ml Vial IV 09/11/24 09:30 50 mg STAT ONE Administration Sodium Bicarbonate 50 meq 09/11/24 08:25 09/11/24 08:38 Sodium Bicarbonate 1 Meq/Ml 50ml Syringe IV 09/11/24 08:26 50 meq STAT ONE Administration Sodium Bicarbonate Confirm 09/11/24 08:26 Sodium Bicarbonate 1 Meq/Ml 50ml Syringe Administered 09/11/24 08:27 Dose 50 meq IV .STK-MED ONE Succinylcholine Chloride 100 mg 09/11/24 07:50 09/11/24 07:42 Succinylcholine Chloride 200mg/10 Ml Vial IV 09/11/24 07:51 100 mg STAT ONE Administration Succinylcholine Chloride 1 mg 09/11/24 07:45 Succinylcholine Chloride 200mg/10 Ml Vial .ROUTE 09/11/24 07:46 .STK-MED ONE Lab/Rad Data: Laboratory Result Diagrams 09/11/24 07:30 09/11/24 07:30 Laboratory Results 09/11/24 09/11/24 09/11/24 Range/Units 13:45 11:40 09:25 WBC (3.98-10.04) x10^3/uL RBC (3.93-5.22) x10^6/uL Hgb (11.2-15.7) g/dL Hct (34.1-44.9) % MCV (79.4-94.8) fL MCH (25.6-32.2) pg MCHC (32.2-35.5) g/dL RDW (11.7-14.4) % Plt Count (182-369) x10^3/uL MPV (9.4-12.3) fL Segmented Neutrophils (34.0-71.1) % Band Neutrophils (0.0-2.0) % Lymphocytes (Manual) (19.3-51.7) % Monocytes (Manual) (4.7-12.5) % Toxic Granulation Platelet Estimate (NORMAL) RBC Morphology Anisocytosis Smear Path Review Puncture Site RIGHT BRACHIAL LEFT RADIAL pCO2 68 H* 70 H* (35-45) mmHg pO2 57 L 77 (75-100) mmHg Base Excess -5.7 L -4.9 L (-2.0-2.0) O2 Saturation 81.9 L 92.9 L (94-100) g/dF ABG pH 7.16 L* 7.16 L* (7.35-7.45) ABG HCO3 24.2 25.0 (22-28) ABG O2 Sat (Measured) 84.2 L 95.9 (95-100) % Hema Test NOT APPLICABLE NOT APPLICABLE A-a Gradient 571 335 a/A Ratio 0.09 0.19 Hemoglobin 13.2 12.4 Carboxyhemoglobin 1.5 2.1 (0.0-6.9) % THgb Methemoglobin 1.2 L 0.9 L (1.4-1.5) % Temperature 37.0 37.0 C POC O2 Flow Rate 100 70 % Tidal Volume 500 500 cc PEEP 8.0 5.0 cmH2O Sodium (135-145) mmol/L Potassium 5.4 H 4.7 (3.5-5.1) mmol/L Chloride (98-107) mmol/L Carbon Dioxide (22-30) mmol/L Anion Gap (5-15) MEQ/L BUN (7-17) mg/dL Creatinine (0.52-1.04) mg/dL Estimated GFR ML/MIN Glucose (74-106) mg/dL Lactic Acid 3.9 H (0.4-2.0) Calcium (8.4-10.2) mg/dL Magnesium (1.6-2.3) mg/dL Total Bilirubin (0.2-1.3) mg/dL AST (14-36) U/L ALT (0-35) U/L Alkaline Phosphatase (38-126) U/L Troponin I < 0.012 (0.000-0.033) ng/mL Serum Total Protein (6.3-8.2) g/dL Albumin (3.5-5.0) g/dL Procalcitonin (0.030-0.080) ng/mL Urine Color (Yellow) Urine Appearance (Clear) Urine pH (4.6-8.0) Ur Specific [place] (1.005-1.030) Urine Protein (Negative) Urine Glucose (UA) (Negative) mg/dL Urine Ketones (Negative) Urine Blood (Negative) Urine Nitrite (Negative) Urine Bilirubin (Negative) Urine Urobilinogen (0.2) mg/dL Ur Leukocyte Esterase (Negative) U Hyaline Cast (Auto) (0-2) /LPF Urine Microscopic RBC (0-5) /HPF Urine Microscopic WBC (0-5) /HPF Ur Epithelial Cells (None Seen) /HPF Urine Bacteria (None Seen) /HPF Granular Casts (None Seen) /LPF Urine Culture Reflexed (NO) 09/11/24 09/11/24 09/11/24 Range/Units 08:47 07:35 07:35 WBC (3.98-10.04) x10^3/uL RBC (3.93-5.22) x10^6/uL Hgb (11.2-15.7) g/dL Hct (34.1-44.9) % MCV (79.4-94.8) fL MCH (25.6-32.2) pg MCHC (32.2-35.5) g/dL RDW (11.7-14.4) % Plt Count (182-369) x10^3/uL MPV (9.4-12.3) fL Segmented Neutrophils (34.0-71.1) % Band Neutrophils (0.0-2.0) % Lymphocytes (Manual) (19.3-51.7) % Monocytes (Manual) (4.7-12.5) % Toxic Granulation Platelet Estimate (NORMAL) RBC Morphology Anisocytosis Smear Path Review Puncture Site LEFT RADIAL pCO2 75 H* (35-45) mmHg pO2 65 L (75-100) mmHg Base Excess -8.2 L (-2.0-2.0) O2 Saturation 85.6 L (94-100) g/dF ABG pH 7.09 L* (7.35-7.45) ABG HCO3 22.8 (22-28) ABG O2 Sat (Measured) 88.6 L (95-100) % Hema Test NOT APPLICABLE A-a Gradient 554 a/A Ratio 0.11 Hemoglobin 12.7 Carboxyhemoglobin 2.7 (0.0-6.9) % THgb Methemoglobin 0.8 L (1.4-1.5) % Temperature 37.0 C POC O2 Flow Rate 100 % Tidal Volume cc PEEP cmH2O Sodium (135-145) mmol/L Potassium 4.8 (3.5-5.1) mmol/L Chloride (98-107) mmol/L Carbon Dioxide (22-30) mmol/L Anion Gap (5-15) MEQ/L BUN (7-17) mg/dL Creatinine (0.52-1.04) mg/dL Estimated GFR ML/MIN Glucose (74-106) mg/dL Lactic Acid 5.8 H (0.4-2.0) Calcium (8.4-10.2) mg/dL Magnesium (1.6-2.3) mg/dL Total Bilirubin (0.2-1.3) mg/dL AST (14-36) U/L ALT (0-35) U/L Alkaline Phosphatase (38-126) U/L Troponin I (0.000-0.033) ng/mL Serum Total Protein (6.3-8.2) g/dL Albumin (3.5-5.0) g/dL Procalcitonin (0.030-0.080) ng/mL Urine Color Dark Yellow A (Yellow) Urine Appearance Cloudy A (Clear) Urine pH 5.0 (4.6-8.0) Ur Specific [place] 1.020 (1.005-1.030) Urine Protein 30 (Negative) Urine Glucose (UA) Negative (Negative) mg/dL Urine Ketones Negative (Negative) Urine Blood Negative (Negative) Urine Nitrite Positive A (Negative) Urine Bilirubin Moderate A (Negative) Urine Urobilinogen 1.0 A (0.2) mg/dL Ur Leukocyte Esterase Small A (Negative) U Hyaline Cast (Auto) 11-20 (0-2) /LPF Urine Microscopic RBC 3-5 (0-5) /HPF Urine Microscopic WBC 0-2 (0-5) /HPF Ur Epithelial Cells Many A (None Seen) /HPF Urine Bacteria Rare A (None Seen) /HPF Granular Casts 0-2 A (None Seen) /LPF Urine Culture Reflexed ORDERED SEPARATELY (NO) 09/11/24 09/11/24 09/11/24 Range/Units 07:30 07:30 07:30 WBC (3.98-10.04) x10^3/uL RBC (3.93-5.22) x10^6/uL Hgb (11.2-15.7) g/dL Hct (34.1-44.9) % MCV (79.4-94.8) fL MCH (25.6-32.2) pg MCHC (32.2-35.5) g/dL RDW (11.7-14.4) % Plt Count (182-369) x10^3/uL MPV (9.4-12.3) fL Segmented Neutrophils (34.0-71.1) % Band Neutrophils (0.0-2.0) % Lymphocytes (Manual) (19.3-51.7) % Monocytes (Manual) (4.7-12.5) % Toxic Granulation Platelet Estimate (NORMAL) RBC Morphology Anisocytosis Smear Path Review Puncture Site pCO2 (35-45) mmHg pO2 (75-100) mmHg Base Excess (-2.0-2.0) O2 Saturation (94-100) g/dF ABG pH (7.35-7.45) ABG HCO3 (22-28) ABG O2 Sat (Measured) (95-100) % Hema Test A-a Gradient a/A Ratio Hemoglobin Carboxyhemoglobin (0.0-6.9) % THgb Methemoglobin (1.4-1.5) % Temperature C POC O2 Flow Rate % Tidal Volume cc PEEP cmH2O Sodium 119 L* (135-145) mmol/L Potassium 4.4 (3.5-5.1) mmol/L Chloride 77 L (98-107) mmol/L Carbon Dioxide 23 (22-30) mmol/L Anion Gap 24.2 H (5-15) MEQ/L BUN 39 H (7-17) mg/dL Creatinine 3.49 H (0.52-1.04) mg/dL Estimated GFR 15.0 ML/MIN Glucose 79 (74-106) mg/dL Lactic Acid (0.4-2.0) Calcium 8.3 L (8.4-10.2) mg/dL Magnesium 1.4 L (1.6-2.3) mg/dL Total Bilirubin 1.10 (0.2-1.3) mg/dL AST 73 H (14-36) U/L ALT 52 H (0-35) U/L Alkaline Phosphatase 160 H (38-126) U/L Troponin I < 0.012 (0.000-0.033) ng/mL Serum Total Protein 6.5 (6.3-8.2) g/dL Albumin 3.4 L (3.5-5.0) g/dL Procalcitonin 15.400 H* (0.030-0.080) ng/mL Urine Color (Yellow) Urine Appearance (Clear) Urine pH (4.6-8.0) Ur Specific [place] (1.005-1.030) Urine Protein (Negative) Urine Glucose (UA) (Negative) mg/dL Urine Ketones (Negative) Urine Blood (Negative) Urine Nitrite (Negative) Urine Bilirubin (Negative) Urine Urobilinogen (0.2) mg/dL Ur Leukocyte Esterase (Negative) U Hyaline Cast (Auto) (0-2) /LPF Urine Microscopic RBC (0-5) /HPF Urine Microscopic WBC (0-5) /HPF Ur Epithelial Cells (None Seen) /HPF Urine Bacteria (None Seen) /HPF Granular Casts (None Seen) /LPF Urine Culture Reflexed (NO) 09/11/24 Range/Units 07:30 WBC 50.0 H* (3.98-10.04) x10^3/uL RBC 4.38 (3.93-5.22) x10^6/uL Hgb 12.2 (11.2-15.7) g/dL Hct 36.5 (34.1-44.9) % MCV 83.3 (79.4-94.8) fL MCH 27.9 (25.6-32.2) pg MCHC 33.4 (32.2-35.5) g/dL RDW 15.1 H (11.7-14.4) % Plt Count 498 H (182-369) x10^3/uL MPV 10.4 (9.4-12.3) fL Segmented Neutrophils 81 H (34.0-71.1) % Band Neutrophils 13 H (0.0-2.0) % Lymphocytes (Manual) 2 L (19.3-51.7) % Monocytes (Manual) 4 L (4.7-12.5) % Toxic Granulation 1+ Platelet Estimate INCREASED (NORMAL) RBC Morphology ABNORMAL Anisocytosis 1+ Smear Path Review Pending Puncture Site pCO2 (35-45) mmHg pO2 (75-100) mmHg Base Excess (-2.0-2.0) O2 Saturation (94-100) g/dF ABG pH (7.35-7.45) ABG HCO3 (22-28) ABG O2 Sat (Measured) (95-100) % Hema Test A-a Gradient a/A Ratio Hemoglobin Carboxyhemoglobin (0.0-6.9) % THgb Methemoglobin (1.4-1.5) % Temperature C POC O2 Flow Rate % Tidal Volume cc PEEP cmH2O Sodium (135-145) mmol/L Potassium (3.5-5.1) mmol/L Chloride (98-107) mmol/L Carbon Dioxide (22-30) mmol/L Anion Gap (5-15) MEQ/L BUN (7-17) mg/dL Creatinine (0.52-1.04) mg/dL Estimated GFR ML/MIN Glucose (74-106) mg/dL Lactic Acid (0.4-2.0) Calcium (8.4-10.2) mg/dL Magnesium (1.6-2.3) mg/dL Total Bilirubin (0.2-1.3) mg/dL AST (14-36) U/L ALT (0-35) U/L Alkaline Phosphatase (38-126) U/L Troponin I (0.000-0.033) ng/mL Serum Total Protein (6.3-8.2) g/dL Albumin (3.5-5.0) g/dL Procalcitonin (0.030-0.080) ng/mL Urine Color (Yellow) Urine Appearance (Clear) Urine pH (4.6-8.0) Ur Specific [place] (1.005-1.030) Urine Protein (Negative) Urine Glucose (UA) (Negative) mg/dL Urine Ketones (Negative) Urine Blood (Negative) Urine Nitrite (Negative) Urine Bilirubin (Negative) Urine Urobilinogen (0.2) mg/dL Ur Leukocyte Esterase (Negative) U Hyaline Cast (Auto) (0-2) /LPF Urine Microscopic RBC (0-5) /HPF Urine Microscopic WBC (0-5) /HPF Ur Epithelial Cells (None Seen) /HPF Urine Bacteria (None Seen) /HPF Granular Casts (None Seen) /LPF Urine Culture Reflexed (NO) - Progress Progress Note: Patient met criteria for sepsis she was given IV antibiotics and placed on a ventilator . . Confirmed ET tube placement was confirmed by chest xray . I spoke to the hospitalist I spoke to the physician automatic centrifugal station operator he wants the patient to receive an amp of bicarb and he will accep the patient - he wants the patient to have the ct scans done here at [facility] . patients family was updated with the plan and current treatments administered and have no further questions at this time 09/11/24 09:18 patient was monitored here in the department she stabilized with her treatments while on the ventilator - she received iv fluids anitbiotics and levophed ct scans of the head nec chest abdomen and pelvis were obtained these revealed pnemonia for ehich she was treated - he family was also updated in a timely fashion and they had no other questions 09/11/24 13:37 Discussed with : Other (chavo) Will see patient in: hospital (full admit) Counseled pt/family regarding: lab results Medical Desision Making - Discussion of managment Care discussed with:: specialist Reviewed:: Need for additional workup Agreed on:: decision to admit Will see patient: in hospital - Departure Departure Disposition: Transfer Clinical Impression: Respiratory distress, Sepsis, Pneumonia, Acute respiratory failure with hypoxia, UTI (urinary tract infection), Acute hypotension Condition: Critical Critical Care Time: Yes Critical Care Time(excluding separately billable procedures): Critical 165-194 mins Referrals: ABRAHAN STEELE DO [Primary Care Provider] - Follow up/PCP as directed
[2024-09-11 09:27] LABS: Creatinine 1 3.49 mg/dL (0.52-1.04)
[2024-09-11 09:29] LABS: A-aADO2 335; ABG HEMOGLOBIN 12.4; ABG POTASSIUM 4.7 (3.5-5.1); ABG SITE LEFT RADIAL; ARTERIAL BLD GAS O2 SATURATION 95.9 % (95-100); ARTERIAL BLD GAS TIDAL VOLUME 500 cc; ARTERIAL BLOOD GAS BASE EXCESS -4.9 (-2.0-2.0); ARTERIAL BLOOD GAS FIO2 70 %; ARTERIAL BLOOD GAS PCO2 70 mmHg (35-45); ARTERIAL BLOOD GAS PO2 77 mmHg (75-100); ARTERIAL BLOOD GAS pH 7.16 (7.35-7.45); CARBOXYHEMOGLOBIN 2.1 % THgb (0.0-6.9); HGB O2 SAT 92.9 g/dF (94-100); Methhemoglobin 0.9 % (1.4-1.5); paO2 pAO1 0.19
[2024-09-11] MEDS: Zemuron 100 MG/10 ML IV ONE (09:37)
[2024-09-11] MEDS ORDERED: PROVENTIL 2.5 MG/3 ML NEB IH ONE (09:49)
[2024-09-11] MEDS: PROVENTIL 2.5 MG/3 ML NEB IH ONE (09:53)
--- NOTE | 2024-09-11 11:12 | XRAY ---
Indication: Status post fall. Short of breath. Multiple contiguous axial images obtained through the head without contrast. Comparison: May 21, 2016 Normal appearing brain parenchyma, ventricles, and bony calvarium. Visualized paranasal sinuses and mastoid air cells are clear. New incompletely visualized endotracheal tube. Impression: Continued normal CT head without contrast exam.
--- NOTE | 2024-09-11 11:14 | XRAY ---
Indication: Status post fall. Short of breath. Multiple contiguous axial images obtained through the cervical spine. Sagittal and coronal reformatted images obtained. Comparison: None Patient is edentulous. Axial images negative for acute fracture, suspicious bony lesions, or spinal canal stenosis. Facets are symmetric. Sagittal and coronal reformatted images demonstrates normal alignment with vertebral body height/disc spaces maintained. No acute compression fracture, subluxation, or jumped facet. Visualized noncontrasted soft tissues demonstrates incompletely visualized endotracheal tube and NG tube. CT chest reported separately. Impression: Normal CT cervical spine.
--- NOTE | 2024-09-11 11:16 | XRAY ---
Indication: Status post fall. Short of breath. Multiple contiguous axial images obtained through the facial bones. Sagittal and coronal reformatted images obtained. Comparison: None Patient is edentulous. TMJ bilaterally symmetric. Axial images negative for acute fracture or suspicious bony lesions. Orbits including roof, [place], and floors intact. Paranasal sinuses and nasal passages are clear. Visualized noncontrasted soft tissues demonstrates incompletely visualized endotracheal tube and NG tube. CT chest and CT cervical spine reported separately. Impression: Normal CT facial bones.
--- NOTE | 2024-09-11 11:20 | XRAY ---
Indication: Status post fall. Short of breath. Multiple contiguous axial images obtained through the chest without contrast. Comparison: None Entire right lower lobe consolidating airspace disease with air bronchograms. Remaining lungs demonstrates minimal scattered patchy consolidation/nonconsolidating air space disease bilaterally. No effusion. Remaining lungs demonstrate scattered subsegmental atelectasis/scarring. Heart not enlarged with scattered coronary calcifications. Aorta minimally arteriosclerotic without aneurysm. NG tube and endotracheal tube in situ. Bony thorax intact. CT abdomen/pelvis reported separately. Impression: 1. Right lower lobe consolidating airspace disease. Lesser bilateral patchy consolidating/nonconsolidating airspace disease. 2. Endotracheal tube and NG tube in situ, reported on same day chest radiograph.
--- NOTE | 2024-09-11 11:24 | XRAY ---
Indication: Status post fall. Short of breath. Multiple contiguous axial images obtained through the abdomen and pelvis without contrast. Comparison: None CT chest reported separately. Noncontrasted stomach and bowel loops appear nonobstructed. NG tube looped in stomach with tip in antral portion. Previous cholecystectomy. Empty urinary bladder with [place] balloon catheter in situ. Incidental tiny splenic calcified granuloma, hepatomegaly, measuring 24 cm and 3 x 4.5 cm right adrenal adenoma. No free fluid/air. Remaining pancreas, spleen, left adrenal gland, kidneys, and ureters are unremarkable for noncontrast exam. Mild scattered aortoiliac calcifications without AAA. Osseous structures intact with minimal/mild degenerative changes throughout spine and both hips. Impression: 1. Chronic findings including hepatomegaly, right adrenal adenoma, arteriosclerotic disease, chronic bony findings, and old granulomatous disease. 2. No acute intra-abdominal/pelvic findings on this noncontrast exam.
[2024-09-11 12:43] VITALS: RESP 18
[2024-09-11 13:40] VITALS: O2SAT 98
[2024-09-11 13:49] LABS: A-aADO2 571; ABG HEMOGLOBIN 13.2; ABG POTASSIUM 5.4 (3.5-5.1); ARTERIAL BLD GAS O2 SATURATION 84.2 % (95-100); ARTERIAL BLD GAS TIDAL VOLUME 500 cc; ARTERIAL BLOOD GAS BASE EXCESS -5.7 (-2.0-2.0); ARTERIAL BLOOD GAS FIO2 100 %; ARTERIAL BLOOD GAS PO2 57 mmHg (75-100); CARBOXYHEMOGLOBIN 1.5 % THgb (0.0-6.9); HCO3- 24.2 (22-28); HGB O2 SAT 81.9 g/dF (94-100); Lactic Acid 3.9 (0.4-2.0); Methhemoglobin 1.2 % (1.4-1.5); paO2 pAO1 0.09
[2024-09-11 13:50] LABS: ABG SITE RIGHT BRACHIAL; ARTERIAL BLOOD GAS PCO2 68 mmHg (35-45); ARTERIAL BLOOD GAS pH 7.16 (7.35-7.45)
[2024-09-11 13:53] VITALS: BP 108/74; PULSE 73
== END 2024-09-11 14:17 | disposition short-term general hospital (02) ==
LOC: ED 07:24
DX: R06.03 Acute respiratory distress (principal); R06.02 Shortness of breath; I10 Essential (primary) hypertension; E78.5 Hyperlipidemia, unspecified; A41.9 Sepsis, unspecified organism; N39.0 Urinary tract infection, site not specified; I95.9 Hypotension, unspecified
CPT/HCPCS: 31500; 36415; 36600; 51702; 70450; 70486; 71045; 71250; 72125; 74176; 80053; 81001; 82375; 82803; 83605; 83735; 84145; 84484; 85025; 87040; 87086; 93005; 94002; 94640; 96365; 96366; 96374; 96375; 99285; 99291; 99292; J0330; J1940; J2250; J7609; A9270-GY; J3370